=== PATIENT | female | born 1990 | race Caucasian/White ===

== ENCOUNTER 2020-02-25 16:05 | Emergency (ER) | payer SELFPAY ==
[2020-02-25] MEDS ORDERED: Lidocaine 1% 30 ML SDV INJECT ONE (16:15)
[2020-02-25] MEDS ORDERED: LORazepam 2 MG/ML SDV IM ONE (16:48)
[2020-02-25] MEDS ORDERED: Flumazenil 0.1 MG/ML 5 ML MDV IVPUSH PRN (16:48)
[2020-02-25] MEDS ORDERED: Haloperidol Lactate 5 MG/ML SDV IM ONE (16:49)
--- NOTE | 2020-02-25 17:29 | EDM.PDOC ---
ED HPI GENERAL MEDICAL PROBLEM - General Stated Complaint: CUTS Time Seen by Provider: 02/25/20 16:05 Source of Information: Reports: Patient History Limitations: Reports: No Limitations - History of Present Illness INITIAL COMMENTS - FREE TEXT/NARRATIVE: Pt. presents to ER via EMS. Pt. was outside her home and was noted to have blood on her hands. She was yelling and acting belligerently. EMS was summoned. Pt. states that she is not sure how she sustained the lacerations to her hands. She admitted to "being buzzed" but denies any other drug use. Pt. denies any suicidal or homicial ideation. She was tearful, upset and belligerent since arrival to ER. She denies any chest pain or shortness of breath. She is alert to time, date and place. He speech was noted to be slurred. No other obvious head or facial trauma noted. Onset: Today Onset Date: 02/25/20 Location: Reports: Upper Extremity, Right, Lower Extremity, Left, Generalized - Related Data Allergies Allergy/AdvReac Type Severity Reaction Status Date / Time No Known Allergies Allergy Verified 02/25/20 16:15 Home Meds: Home Meds . [No Known Home Meds] 02/25/20 [History] ED ROS GENERAL - Review of Systems Review Of Systems: See Below Constitutional: Reports: No Symptoms HEENT: Reports: No Symptoms Respiratory: Reports: No Symptoms Cardiovascular: Reports: No Symptoms Endocrine: Reports: No Symptoms GI/Abdominal: Reports: No Symptoms : Reports: No Symptoms Musculoskeletal: Reports: No Symptoms Skin: Reports: No Symptoms Neurological: Reports: No Symptoms Psychiatric: Reports: No Symptoms Hematologic/Lymphatic: Reports: No Symptoms Immunologic: Reports: No Symptoms Free Text/Narrative/Comment: Initial ROS largely unobtainable. Pt. was able to give a full, coherent ROS prior to discharge, approx. 7-8 hours after arrival to ER. ED EXAM, GENERAL - Physical Exam Exam: See Below Exam Limited By: No Limitations General Appearance: Alert, WD/WN, No Apparent Distress Eye Exam: Bilateral Eye: EOMI, Normal Fundi, Normal Inspection, PERRL Throat/Mouth: Normal Inspection, Normal Lips, Normal Gums, Other (Missing upper incisors chronically) Head: Atraumatic, Normocephalic Neck: Normal Inspection, Supple, Non-Tender, Full Range of Motion Respiratory/Chest: No Respiratory Distress, Lungs Clear, Normal Breath Sounds, No Accessory Muscle Use, Chest Non-Tender Cardiovascular: Normal Peripheral Pulses, Regular Rate, Rhythm, No Edema, No Murmur GI/Abdominal: Normal Bowel Sounds, Soft, Non-Tender, No Organomegaly, No Distention, No Mass (Female) Exam: Deferred Rectal (Female) Exam: Deferred Back Exam: Normal Inspection, Full Range of Motion Extremities: Normal Range of Motion, Non-Tender, No Pedal Edema, Normal Capillary Refill, Other (numerous abrasions and lacerations to fingers. Pt. is unable to relate what happened, or when she sustained the injuries.) Neurological: Alert, Oriented, CN II-XII Intact, Normal Cognition, Normal Gait, Normal Reflexes, No Motor/Sensory Deficits Psychiatric: Normal Affect, Normal Mood Skin Exam: Warm, Dry, Intact, Normal Color, No Rash Lymphatic: No Adenopathy Course - Vital Signs Last Recorded V/S: Last Vital Signs Temp 36.7 C 02/25/20 16:15 Pulse 92 02/25/20 19:39 Resp 15 02/25/20 19:39 BP 146/97 H 02/25/20 16:15 Pulse Ox 99 02/25/20 19:39 - Orders/Labs/Meds Orders: Active Orders 24 hr Category Date Time Status Lactated Ringers [Ringers, Lactated] 1,000 ml Med 02/25/20 19:30 Active IV ASDIRECTED flumazeniL [Romazicon] Med 02/25/20 16:48 Active 0.2 mg IVPUSH ASDIRECTED PRN Medication Orders Flumazenil (Romazicon) 0.2 mg IVPUSH ASDIRECTED PRN PRN Reason: Respiratory Depression Lactated Ringer's (Ringers, Lactated) 1,000 mls @ 500 mls/hr IV ASDIRECTED SAUNDRA Last Admin: 02/25/20 19:32 Dose: 500 mls/hr Documented by: MACRINA Labs: Laboratory Tests 02/25/20 02/25/20 02/25/20 Range/Units 16:24 16:24 17:52 WBC 13.5 H (4.0-10.0) x10^3/uL RBC 4.70 (4.00-5.50) x10^6/uL Hgb 14.2 (12.0-16.0) g/dL Hct 40.8 (33.0-47.0) % MCV 86.8 (78.0-93.0) fL MCH 30.2 (26.0-32.0) pg MCHC 34.8 (32.0-36.0) g/dL RDW Coeff of Guevara 13.1 (10.0-15.0) % Plt Count 368 (130-400) x10^3/uL Add Manual Diff Yes Neutrophils % (Manual) 37 L (50-80) % Band Neutrophils % 5 (0-6) % Lymphocytes % (Manual) 41 (25-50) % Atypical Lymphs % 1 H (0) % Monocytes % (Manual) 10 (2-11) % Eosinophils % (Manual) 4 (0-4) % Metamyelocytes % 2 H (0) % Platelet Estimate Adequate PT (9.5-12.3) SEC INR (2.0-3.5) Sodium (136-145) mmol/L Potassium (3.5-5.1) mmol/L Chloride (98-107) mmol/L Carbon Dioxide (21-32) mmol/L Anion Gap (10-20) mmol/L BUN (7-18) mg/dL Creatinine (0.55-1.02) mg/dL Est Cr Clr Drug Dosing Estimated GFR (MDRD) Glucose (74-106) mg/dL Calcium (8.5-10.1) mg/dL Corrected Calcium (8.5-10.1) mg/dL Total Bilirubin (0.2-1.0) mg/dL AST (15-37) U/L ALT (14-59) U/L Alkaline Phosphatase (46-116) U/L Total Protein (6.4-8.2) g/dL Albumin (3.4-5.0) g/dL Globulin Albumin/Globulin Ratio Urine Color Light yellow (YELLOW) Urine Appearance Clear (CLEAR) Urine pH 5.5 (5.0-8.0) Ur Specific Continental 1.015 Urine Protein Negative (NEGATIVE) mg/dL Urine Glucose (UA) Negative (NEGATIVE) mg/dL Urine Ketones Negative (NEGATIVE) mg/dL Urine Occult Blood Small H (NEGATIVE) Urine Nitrite Negative (NEGATIVE) Urine Bilirubin Negative (NEGATIVE) Urine Urobilinogen 0.2 (0.2) EU/dL Ur Leukocyte Esterase Negative (NEGATIVE) Urine RBC 5-10 H (NOT SEEN) /HPF Urine WBC 0-5 (NOT SEEN) /HPF Ur Squamous Epith Cells Rare (NEGATIVE) /HPF Urine Bacteria Rare (NEGATIVE) /HPF Urine Mucus Not seen (NEGATIVE) /LPF Urine HCG, Qual Negative (NEGATIVE) Acetaminophen (10-30) ug/ml Ethyl Alcohol (0-3) mg/dL SARS CoV-2 RNA Rapid ALEJANDRA (NEGATIVE) 02/25/20 02/25/20 02/25/20 Range/Units 17:52 17:52 17:52 WBC (4.0-10.0) x10^3/uL RBC (4.00-5.50) x10^6/uL Hgb (12.0-16.0) g/dL Hct (33.0-47.0) % MCV (78.0-93.0) fL MCH (26.0-32.0) pg MCHC (32.0-36.0) g/dL RDW Coeff of Guevara (10.0-15.0) % Plt Count (130-400) x10^3/uL Add Manual Diff Neutrophils % (Manual) (50-80) % Band Neutrophils % (0-6) % Lymphocytes % (Manual) (25-50) % Atypical Lymphs % (0) % Monocytes % (Manual) (2-11) % Eosinophils % (Manual) (0-4) % Metamyelocytes % (0) % Platelet Estimate PT 10.2 (9.5-12.3) SEC INR 0.9 L (2.0-3.5) Sodium 142 (136-145) mmol/L Potassium 3.2 L (3.5-5.1) mmol/L Chloride 105 (98-107) mmol/L Carbon Dioxide 23 (21-32) mmol/L Anion Gap 17.2 (10-20) mmol/L BUN 14 (7-18) mg/dL Creatinine 1.1 H (0.55-1.02) mg/dL Est Cr Clr Drug Dosing TNP Estimated GFR (MDRD) 59 Glucose 78 (74-106) mg/dL Calcium 8.3 L (8.5-10.1) mg/dL Corrected Calcium 8.38 L (8.5-10.1) mg/dL Total Bilirubin 0.4 (0.2-1.0) mg/dL AST 29 (15-37) U/L ALT 24 (14-59) U/L Alkaline Phosphatase 50 (46-116) U/L Total Protein 7.4 (6.4-8.2) g/dL Albumin 3.9 (3.4-5.0) g/dL Globulin 3.5 Albumin/Globulin Ratio 1.11 Urine Color (YELLOW) Urine Appearance (CLEAR) Urine pH (5.0-8.0) Ur Specific Continental Urine Protein (NEGATIVE) mg/dL Urine Glucose (UA) (NEGATIVE) mg/dL Urine Ketones (NEGATIVE) mg/dL Urine Occult Blood (NEGATIVE) Urine Nitrite (NEGATIVE) Urine Bilirubin (NEGATIVE) Urine Urobilinogen (0.2) EU/dL Ur Leukocyte Esterase (NEGATIVE) Urine RBC (NOT SEEN) /HPF Urine WBC (NOT SEEN) /HPF Ur Squamous Epith Cells (NEGATIVE) /HPF Urine Bacteria (NEGATIVE) /HPF Urine Mucus (NEGATIVE) /LPF Urine HCG, Qual (NEGATIVE) Acetaminophen 0 L (10-30) ug/ml Ethyl Alcohol 248 H (0-3) mg/dL SARS CoV-2 RNA Rapid ALEJANDRA (NEGATIVE) 02/25/20 Range/Units 17:56 WBC (4.0-10.0) x10^3/uL RBC (4.00-5.50) x10^6/uL Hgb (12.0-16.0) g/dL Hct (33.0-47.0) % MCV (78.0-93.0) fL MCH (26.0-32.0) pg MCHC (32.0-36.0) g/dL RDW Coeff of Guevara (10.0-15.0) % Plt Count (130-400) x10^3/uL Add Manual Diff Neutrophils % (Manual) (50-80) % Band Neutrophils % (0-6) % Lymphocytes % (Manual) (25-50) % Atypical Lymphs % (0) % Monocytes % (Manual) (2-11) % Eosinophils % (Manual) (0-4) % Metamyelocytes % (0) % Platelet Estimate PT (9.5-12.3) SEC INR (2.0-3.5) Sodium (136-145) mmol/L Potassium (3.5-5.1) mmol/L Chloride (98-107) mmol/L Carbon Dioxide (21-32) mmol/L Anion Gap (10-20) mmol/L BUN (7-18) mg/dL Creatinine (0.55-1.02) mg/dL Est Cr Clr Drug Dosing Estimated GFR (MDRD) Glucose (74-106) mg/dL Calcium (8.5-10.1) mg/dL Corrected Calcium (8.5-10.1) mg/dL Total Bilirubin (0.2-1.0) mg/dL AST (15-37) U/L ALT (14-59) U/L Alkaline Phosphatase (46-116) U/L Total Protein (6.4-8.2) g/dL Albumin (3.4-5.0) g/dL Globulin Albumin/Globulin Ratio Urine Color (YELLOW) Urine Appearance (CLEAR) Urine pH (5.0-8.0) Ur Specific Continental Urine Protein (NEGATIVE) mg/dL Urine Glucose (UA) (NEGATIVE) mg/dL Urine Ketones (NEGATIVE) mg/dL Urine Occult Blood (NEGATIVE) Urine Nitrite (NEGATIVE) Urine Bilirubin (NEGATIVE) Urine Urobilinogen (0.2) EU/dL Ur Leukocyte Esterase (NEGATIVE) Urine RBC (NOT SEEN) /HPF Urine WBC (NOT SEEN) /HPF Ur Squamous Epith Cells (NEGATIVE) /HPF Urine Bacteria (NEGATIVE) /HPF Urine Mucus (NEGATIVE) /LPF Urine HCG, Qual (NEGATIVE) Acetaminophen (10-30) ug/ml Ethyl Alcohol (0-3) mg/dL SARS CoV-2 RNA Rapid ALEJANDRA Negative (NEGATIVE) Meds: Medications Generic Name Dose Route Start Last Admin Trade Name Freq PRN Reason Stop Dose Admin Flumazenil 0.2 mg 02/25/20 16:48 Romazicon IVPUSH ASDIRECTED PRN Respiratory Depression Lactated Ringer's 1,000 mls @ 500 mls/hr 02/25/20 19:30 02/25/20 19:32 Ringers, Lactated IV 500 mls/hr ASDIRECTED SAUNDRA Administration Discontinued Medications Generic Name Dose Route Start Last Admin Trade Name Freq PRN Reason Stop Dose Admin Haloperidol Lactate 5 mg 02/25/20 16:49 02/25/20 17:00 Haldol IM 02/25/20 16:50 5 mg STAT ONE Administration Lidocaine HCl 30 ml 02/25/20 16:15 02/25/20 21:57 Xylocaine-Mpf 1% INJECT 02/25/20 16:16 Not Given ONETIME ONE Lorazepam 2 mg 02/25/20 16:48 02/25/20 17:01 Ativan IM 02/25/20 16:49 2 mg STAT ONE Administration Departure - Departure Time of Disposition: 00:24 Disposition: Home, Self-Care 01 Clinical Impression: Intoxication - Discharge Information Instructions: Alcohol Intoxication Referrals: Vidhya Sosa MD [Primary Care Provider] - Forms: ED Department Discharge Additional Instructions: Home to rest. Change dressing on finger every day. Recheck in clinic in 7-10 days. Sepsis Event Note (ED) - Focused Exam Vital Signs: Vital Signs Temp Pulse Resp BP Pulse Ox 02/25/20 19:39 92 15 99 02/25/20 16:15 36.7 C 92 14 146/97 H 96 - Problem List Review Problem List Initiated/Reviewed/Updated: Yes - My Orders Last 24 Hours: My Active Orders 02/25/20 16:48 flumazeniL [Romazicon] 0.2 mg IVPUSH ASDIRECTED PRN 02/25/20 19:30 Lactated Ringers [Ringers, Lactated] 1,000 ml IV ASDIRECTED - Assessment/Plan Last 24 Hours: My Active Orders 02/25/20 16:48 flumazeniL [Romazicon] 0.2 mg IVPUSH ASDIRECTED PRN 02/25/20 19:30 Lactated Ringers [Ringers, Lactated] 1,000 ml IV ASDIRECTED Plan: Pt. is requesting immediate discharge. She woke up after and extended sleep in ER. Pt. was alert to time, date and place. She denies any suicidal or homicidal ideation. She refused to allow us to call her a ride, as [place] [address] [place] [address] hospital. All questions were answered.
[2020-02-25 18:27] LABS: CHLORIDE,CL 105 mmol/L (98-107); SODIUM,NA 142 mmol/L (136-145)
[2020-02-25 18:28] LABS: ANION GAP 17.2 mmol/L (10-20)
[2020-02-25] MEDS ORDERED: Lactated Ringers 1,000 ML IV SCH (19:30)
== END 2020-02-26 00:11 | disposition home or self-care (01) ==
LOC: VM.ED 16:05
DX: S61.210A Laceration without foreign body of right index finger without damage to nail, initial encounter (principal); F10.129 Alcohol abuse with intoxication, unspecified; Z20.828 Contact with and (suspected) exposure to other viral communicable diseases; X58.XXXA Exposure to other specified factors, initial encounter; Y90.8 Blood alcohol level of 240 mg/100 ml or more
CPT/HCPCS: 36415; 80053; 80307; 81001; 81025; 85025; 85610; 96360; 96361; 96372; 99283; 99285-25; J1630; J2060; J7120; U0002